=== PATIENT | female | born 1965 | race Caucasian/White ===

== ENCOUNTER → 2025-03-21 18:38 | Outpatient (REF) | payer OTHER, SELFPAY | LOC: WDC 18:38 | PROVIDERS: ATTENDING PHYSICIAN Nurse Practitioner Adult Health | DX: Z12.31 Encounter for screening mammogram for malignant neoplasm of breast (principal) | CPT/HCPCS: 77063; 77067 ==

== ENCOUNTER 2025-03-31 06:30 | Day surgery (SDC) | payer OTHER, SELFPAY | END 2025-03-31 14:09 | disposition home or self-care (01) | LOC: GI 06:30 | PROVIDERS: ATTENDING PHYSICIAN Internal Medicine Gastroenterology | DX: Z12.11 Encounter for screening for malignant neoplasm of colon (principal); K64.8 Other hemorrhoids; K57.30 Diverticulosis of large intestine without perforation or abscess without bleeding | CPT/HCPCS: G0121 ==